=== PATIENT | female | born 1990 | race Caucasian/White ===

== ENCOUNTER 2023-06-30 11:42 | Emergency (ER) | payer OTHER, SELFPAY ==
[2023-06-30 11:45] VITALS: BP 124/57
[2023-06-30 12:09] LABS: % Basophils 0.7 % (0-2); % Immature Granulocytes 0.2 % (0-0.5); Absolute Monocytes 0.4 10^3/uL (0.1-0.6); Hemoglobin 11.5 g/dL (12.0-16.0); Mean Corpuscular Hgb 26.4 pg (27.0-31.0); Nucleated Red Blood Cells % 0 %; Red Blood Cell Count 4.35 10^6/uL (4.20-5.40)
[2023-06-30 12:19] LABS: HCG, Serum Qualitative Screen Negative
[2023-06-30 12:22] LABS: % Lymphocytes 33.6 % (20.5-51.1); % Monocytes 7.6 % (1.7-9.3); % Neutrophils 53.9 % (42.2-75.2); Absolute Eosinophils 0.2 10^3/uL (0-0.7); Absolute Neutrophils 3.1 10^3/uL (1.4-6.5); Hematocrit 34.9 % (37.0-47.0); Mean Corpuscular Volume 80.2 fL (81.0-99.0); Mean Platelet Volume 10.1 fL (7.4-10.4); Platelet Count 290 10^3/uL (130-400); Red Cell Dist. Width 13.8 % (11.5-14.5); White Blood Cell Count 5.8 10^3/uL (4.8-10.8)
[2023-06-30 12:25] LABS: ALT (SGPT) 14 U/L (0-35); AST (SGOT) 20 U/L (14-36); Albumin 4.9 g/dl (3.5-5.0); Alkaline Phosphatase 54 U/L (38-126); Blood Urea Nitrogen 16 mg/dl (7-17); Calcium 9.5 mg/dl (8.4-10.2); Carbon Dioxide 24 mmol/L (22-30); Chloride 104 mmol/L (98-107); Glucose 83 mg/dl (70-99); Potassium 4.3 mmol/L (3.5-5.1); Sodium 137 mmol/L (135-145); Total Bilirubin 0.3 mg/dl (0.2-1.3); Total Protein 8.1 g/dl (6.3-8.2); eGFR > 60.00
== END 2023-06-30 13:43 | disposition left against medical advice (07) ==
LOC: EMR 11:42
PROVIDERS: EMERGENCY PHYSICIAN Student in an Organized Health Care Education/Training Program
DX: R10.9 Unspecified abdominal pain (principal)
CPT/HCPCS: 80053; 84703; 85025